=== PATIENT | male | born 1980 | race American Indian/Alaskan Native ===

== ENCOUNTER 2023-10-25 01:26 | Emergency (ER) | payer OTHER ==
[~2023-10-25] VITALS: Ht 177.8 cm; Wt 69.3 kg
[~2023-10-25 01:26] MED LIST: LEVSIN-SL0.125 MG SL
[2023-10-25] MEDS ORDERED: SUCRALFATE 1 GM TAB PO ONE (01:45)
[2023-10-25] MEDS ORDERED: LIDOCAINE & ANTACID 35 ML BTL PO ONE (01:45)
[2023-10-25 01:58] LABS: BASOPHILS 0.9 % (0-2); HEMOGLOBIN 13.8 g/dL (12.0-18.0)
[2023-10-25 02:00] LABS: EOSINOPHILS 0.8 % (0-6); LYMPHOCYTES 21.2 % (24-44); MCH 32.6 (27-36); MCHC 33.6 g/dl (30-36); MCV 96.8 fl (81-99); MONOCYTES 5.6 % (0-12); NEUTROPHILS 71.5 % (39-80); PLATELET COUNT 231 K/uL (140-440); RBC 4.23 M/ul (4.3-5.7); RDW 12.9 (10.5-15.0)
[2023-10-25 02:11] LABS: ALBUMIN/GLOBULIN RATIO 0.93 (1.1-2.4); ANION GAP 19.4 (7-21); BILIRUBIN, TOTAL 0.4 ng/dL (0.2-1.0); BUN/CREATININE RATIO 4.7 (6.0-28.6); CREATININE, SERUM 0.85 mg/dL (0.70-1.30); POTASSIUM 3.4 mmol/L (3.5-5.1); PROTEIN, TOTAL 8.3 g/dL (6.4-8.2)
[2023-10-25 02:41] LABS: CALCIUM 7.6 mg/dL (8.5-10.1)
[2023-10-25] MEDS ORDERED: ONDANSETRON ODT8 MG PO (02:52)
[2023-10-25] MEDS ORDERED: TRAMADOL HCL50 MG PO (02:52)
[2023-10-25] MEDS ORDERED: TRAMADOL HCL 50 MG HOME.PACK PO ONE (03:00)
[2023-10-25] MEDS ORDERED: ONDANSETRON 4 MG HOME.PACK SL ONE (03:00)
[2023-10-25 03:35] VITALS: BP 124/82
== END 2023-10-25 03:30 | disposition home or self-care (01) ==
LOC: ED 01:26
PROVIDERS: Family Medicine
DX: K85.90 Acute pancreatitis without necrosis or infection, unspecified (principal)
CPT/HCPCS: 36415; 74018; 80053; 83690; 85025; A9270